=== PATIENT | male | born 1960 | race Caucasian/White ===

== ENCOUNTER 2019-02-04 21:35 | Emergency (ER) | payer BC ==
[2019-02-04 22:01] VITALS: BP 169/80; PULSE 84; RESP 18; TEMP 98.4
--- NOTE | 2019-02-04 22:40 | ED ---
Male Urogenital HPI - General Chief complaint: Urogenital Stated complaint: Urine Retention Time Seen by Provider: 02/04/19 22:06 Source: patient Mode of arrival: ambulatory Limitations: no limitations - History of Present Illness Initial comments: Patient is a 58-year-old male presenting to the emergency Department with complaints of urinary retention for the last 20 hours. Patient admits he does have an enlarged prostate and is being watched by his urologist with checks every 6 months. Patient states he had a similar issue in July and needed a catheter, but after that he had no problems until today. Patient is on Flomax, daily per his urologist. Patient denies fever, chills, nausea, vomiting. Patient has no other complaints at this time. - Related Data Home Medications Medication Instructions Recorded Confirmed Aspirin EC [Ecotrin Low Dose] 81 mg PO DAILY 02/04/19 02/04/19 Icosapent Ethyl [Vascepa] 2 gm PO DAILY 02/04/19 02/04/19 Lisinopril-Hctz 10-12.5 mg 1 tab PO DAILY 02/04/19 02/04/19 [Zestoretic 10-12.5] Rosuvastatin [Crestor] 10 mg PO DAILY 02/04/19 02/04/19 Tamsulosin HCl [Flomax] 0.4 mg PO HS 02/04/19 02/04/19 Vitamin E (Dl,Tocopheryl Acet) 400 unit PO DAILY 02/04/19 02/04/19 [Vitamin E] metFORMIN HCL ER [Glucophage Xr] 500 mg PO BID 02/04/19 02/04/19 Allergies Allergy/AdvReac Type Severity Reaction Status Date / Time No Known Allergies Allergy Verified 02/04/19 22:58 Review of Systems ROS Statement: Those systems with pertinent positive or pertinent negative responses have been documented in the HPI. ROS Other: All systems not noted in ROS Statement are negative. 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 HEAD: Atraumatic, normocephalic. EYES: Pupils equal round and reactive to light, extraocular movements intact, sclera anicteric, conjunctiva are normal. ENT: TMs normal, nares patent, oropharynx clear without exudates. Moist mucous membranes. NECK: Normal range of motion, supple without lymphadenopathy or JVD. LUNGS: Breath sounds clear to auscultation bilaterally and equal. No wheezes rales or rhonchi. HEART: Regular rate and rhythm without murmurs, rubs or gallops. ABDOMEN: Soft, nontender, normoactive bowel sounds. No guarding, no rebound. No masses appreciated. "pressure" noted over the bladder area. : Deferred EXTREMITIES: Normal range of motion, no pitting or edema. No clubbing or cyanosis. NEUROLOGICAL: Cranial nerves II through XII grossly intact. Normal speech, normal gait. PSYCH: Normal mood, normal affect. SKIN: Warm, Dry, normal turgor, no rashes or lesions noted. Limitations: no limitations Course Vital Signs 02/04/19 21:57 Temperature 98.4 F Pulse Rate 84 Respiratory 18 Rate Blood Pressure 169/80 O2 Sat by Pulse 96 Oximetry Medical Decision Making - Medical Decision Making Patient is a 58-year-old male with complaints of urinary retention for the last 20 hours. Patient admits he has an enlarged prostate which is being watched with checks every 6 months. Patient states he had same issue happened in [facility] er. Patient denies any fever, chills, nausea, vomiting. Patient is able to urinate just a little bit in the last 24 hours. Exam is unremarkable except for pressure over the bladder. Bladder scan revealed a little over 750 mL. A catheter was inserted. Patient requested that it not be left in. Patient and are given the risks of not leaving the grant in. Patient was okay with the risk and will follow up with urologist on Wednesday. Case discussed with Dr. Bird. Return parameters were discussed. Patient was discharged home. - Lab Data Result diagrams: 02/04/19 22:40 02/04/19 22:40 Lab Results 02/04/19 02/04/19 02/04/19 Range/Units 22:40 22:40 22:40 WBC 7.5 (3.8-10.6) k/uL RBC 4.71 (4.30-5.90) m/uL Hgb 13.5 (13.0-17.5) gm/dL Hct 40.4 (39.0-53.0) % MCV 85.8 (80.0-100.0) fL MCH 28.8 (25.0-35.0) pg MCHC 33.5 (31.0-37.0) g/dL RDW 12.5 (11.5-15.5) % Plt Count 190 (150-450) k/uL Neutrophils % 73 % Lymphocytes % 18 % Monocytes % 5 % Eosinophils % 3 % Basophils % 0 % Neutrophils # 5.5 (1.3-7.7) k/uL Lymphocytes # 1.3 (1.0-4.8) k/uL Monocytes # 0.4 (0-1.0) k/uL Eosinophils # 0.2 (0-0.7) k/uL Basophils # 0.0 (0-0.2) k/uL Sodium 141 (137-145) mmol/L Potassium 3.9 (3.5-5.1) mmol/L Chloride 104 (98-107) mmol/L Carbon Dioxide 27 (22-30) mmol/L Anion Gap 10 mmol/L BUN 21 H (9-20) mg/dL Creatinine 1.09 (0.66-1.25) mg/dL Est GFR (CKD-EPI)AfAm 87 (>60 ml/min/1.73 sqM) Est GFR (CKD-EPI)NonAf 76 (>60 ml/min/1.73 sqM) Glucose 163 H (74-99) mg/dL Calcium 9.3 (8.4-10.2) mg/dL Total Bilirubin 0.5 (0.2-1.3) mg/dL AST 29 (17-59) U/L ALT 44 (21-72) U/L Alkaline Phosphatase 51 (38-126) U/L Total Protein 7.1 (6.3-8.2) g/dL Albumin 4.4 (3.5-5.0) g/dL Urine Color Yellow Urine Appearance Clear (Clear) Urine pH 5.5 (5.0-8.0) Ur Specific [place] 1.021 (1.001-1.035) Urine Protein Negative (Negative) Urine Glucose (UA) 1+ H (Negative) Urine Ketones Negative (Negative) Urine Blood Trace H (Negative) Urine Nitrite Negative (Negative) Urine Bilirubin Negative (Negative) Urine Urobilinogen <2.0 (<2.0) mg/dL Ur Leukocyte Esterase Negative (Negative) Urine RBC 9 H (0-5) /hpf Urine WBC 1 (0-5) /hpf Urine Mucus Rare H (None) /hpf Disposition Clinical Impression: Acute retention of urine Disposition: HOME SELF-CARE Condition: Stable Instructions (If sedation given, give patient instructions): Urinary Retention in Men (ED) Additional Instructions: Please return to the Emergency Department if symptoms worsen or any other concerns. Follow up with urologist on Wednesday. Is patient prescribed a controlled substance at d/c from ED?: No Referrals: Corey Smith DO [Primary Care Provider] - 1-2 days
[2019-02-04 22:59] LABS: Basophils % (A) 0 %; Eosinophils # (A) 0.2 k/uL (0-0.7); Eosinophils % (A) 3 %; HCT 40.4 % (39.0-53.0); HGB 13.5 gm/dL (13.0-17.5); Lymphocytes # (A) 1.3 k/uL (1.0-4.8); Lymphocytes % (A) 18 %; MCH 28.8 pg (25.0-35.0); MCHC 33.5 g/dL (31.0-37.0); MCV 85.8 fL (80.0-100.0); Mean Platelet Volume 6.8; Monocytes # (A) 0.4 k/uL (0-1.0); Monocytes % (A) 5 %; Neutrophils # (A) 5.5 k/uL (1.3-7.7); Neutrophils % (A) 73 %; Platelet Count 190 k/uL (150-450); RBC 4.71 m/uL (4.30-5.90); RDW 12.5 % (11.5-15.5); WBC 7.5 k/uL (3.8-10.6)
[2019-02-04 23:03] LABS: Appearance,Urine Clear (Clear); Bilirubin,Urine Negative (Negative); Blood,Urine Trace (Negative); Color,Urine Yellow; Glucose,Urine (UA) 1+ (Negative); Ketones,Urine Negative (Negative); Leukocyte Esterase,Urine Negative (Negative); Mucus,Urine Rare /hpf; Nitrite,Urine Negative (Negative); PH, Urine 5.5 (5.0-8.0); Protein,Urine Negative (Negative); RBC,Urine 9 /hpf (0-5); Specific Gravity,Urine 1.021 (1.001-1.035); Urobilinogen,Urine <2.0 mg/dL (<2.0)
[2019-02-04 23:08] LABS: Albumin 4.4 g/dL (3.5-5.0); Calcium 9.3 mg/dL (8.4-10.2); Potassium 3.9 mmol/L (3.5-5.1); Total Bilirubin 0.5 mg/dL (0.2-1.3); Total Protein 7.1 g/dL (6.3-8.2)
== END 2019-02-04 23:40 | disposition home or self-care (01) ==
LOC: EC 21:35
DX: R33.9 Retention of urine, unspecified (principal); N40.0 Benign prostatic hyperplasia without lower urinary tract symptoms; E11.9 Type 2 diabetes mellitus without complications; E78.5 Hyperlipidemia, unspecified; I10 Essential (primary) hypertension; Z79.82 Long term (current) use of aspirin; Z79.899 Other long term (current) drug therapy; Z79.84 Long term (current) use of oral hypoglycemic drugs
CPT/HCPCS: 36415; 51702; 51798; 80053; 81001; 85025; 99284